=== PATIENT | male | born 1990 ===

== ENCOUNTER 2022-10-07 07:49 | Emergency (ER) | payer OTHER ==
[2022-10-07 07:58] VITALS: TEMP 98
[2022-10-07] MEDS ORDERED: KETOROLAC 15 MG/ML 1 ML VIAL IM STA (08:11)
--- NOTE | 2022-10-07 09:01 | ED ---
Back Pain HPI - General Chief Complaint: Back Pain/Injury Stated Complaint: back pain Time Seen by Provider: 10/07/22 08:05 Source: patient, RN notes reviewed Limitations: no limitations - History of Present Illness Initial Comments: Patient is a 32-year-old male presenting to the emergency room with complaints of right lower back pain radiating towards his hip. He reports the pain has been ongoing for approximately 3 days and began after sitting down a weight machine at the gym in which she was working his upper body with. He states that he went to urgent care where he was given a dose of steroid and muscle relaxer. He reports that these helped some initially but his pain persists and he was advised that within 24-48 hours symptoms should be improving. He denies any foc al neurological deficits, weakness, numbness, tingling, bowel or bladder incontinence, saddle paresthesia or other red flag symptoms for cauda equina. He has a past medical history significant for asthma without any recent exacerbations and does not take any medications on a regular basis. - Related Data Previous Rx's Medication Instructions Recorded predniSONE [Deltasone] 20 mg PO BID 5 Days #10 tab 10/07/22 Allergies Allergy/AdvReac Type Severity Reaction Status Date / Time No Known Allergies Allergy Verified 10/07/22 07:58 Review of Systems ROS Statement: Those systems with pertinent positive or pertinent negative responses have been documented in the HPI. ROS Other: All systems not noted in ROS Statement are negative. Past Medical History Past Medical History: Asthma Past Surgical History: No Surgical Hx Reported Past Psychological History: No Psychological Hx Reported Smoking Status: Current some day smoker Past Alcohol Use History: None Reported Past Drug Use History: None Reported General Exam Limitations: no limitations General appearance: alert Head exam: Present: atraumatic, normocephalic, normal inspection Eye exam: Present: normal appearance, PERRL, EOMI. Absent: scleral icterus, conjunctival injection, periorbital swelling ENT exam: Present: normal exam, mucous membranes moist Neck exam: Present: normal inspection, full ROM Respiratory exam: Absent: respiratory distress, accessory muscle use Cardiovascular Exam: Present: regular rate GI/Abdominal exam: Absent: distended Extremities exam: Present: normal inspection. Absent: pedal edema, joint swelling Back exam: Present: normal inspection, full ROM, tenderness (near right iliac crest). Absent: paraspinal tenderness, vertebral tenderness Neurological exam: Present: alert, oriented X3, CN II-XII intact Psychiatric exam: Present: normal affect, normal mood Skin exam: Present: warm, dry, intact, normal color. Absent: rash Course Vital Signs 10/07/22 10/07/22 07:56 10:11 Temperature 98 F 98 F Pulse Rate 89 85 Respiratory 20 18 Rate Blood Pressure 137/87 134/85 O2 Sat by Pulse 100 100 Oximetry Medical Decision Making - Medical Decision Making 32-year-old male presenting with complaints of low back pain radiating to the right flank region after utilizing gym equipment treated by urgent care with one-time dose of steroid a muscle relaxer with temporary relief of symptoms. Not currently on any prescriptions. No imaging obtained by urgent care. Will obtain x-ray of lumbar spine and sacroiliac joints. No indication for laboratory studies. Will give dose of IM Toradol for pain. Some mild improvement with Toradol. X-ray of the lumbar spine and sacroiliac joints image reviewed by myself showing no evidence of fracture or dislocation. Will discharge home in stable condition with conservative therapy and utilization of [id number] anti-inflammatories for pain as needed. Advise follow-up with primary care provider. Case discussed with Dr. Andujar. - Radiology Data Radiology results: report reviewed, image reviewed X-ray lumbosacral spine impression my radiology shows no acute fracture or dislocation seen in the lumbar spine vertebral height are within normal limits and disc spaces are well preserved. Overlying soft tissue appears unremarkable. Xray sacroiliac joints complete bilaterally impression my radiologist as negative study with normal and symmetrical sacroiliac joints. No fracture or osseous lesions. Disposition Clinical Impression: Low back pain with radiation Disposition: HOME SELF-CARE Condition: Stable Instructions (If sedation given, give patient instructions): Acute Low Back Pain (ED), Lower Back Exercises (ED) Additional Instructions: Please take course of steroids as prescribed. Do not take other NSAIDs while on steroids. Range of motion as tolerated encouraged. Avoid heavy lifting and bedrest. Please follow-up with your primary care provider. Please return to the Emergency Department if symptoms worsen or any other concerns.. Prescriptions: predniSONE [Deltasone] 20 mg PO BID 5 Days #10 tab Is patient prescribed a controlled substance at d/c from ED?: No Referrals: None,Stated [Primary Care Provider] - 1-2 days Time of Disposition: 09:38
--- NOTE | 2022-10-07 09:04 | XR ---
EXAMINATION TYPE: XR lumbosacral spine min 4V DATE OF EXAM: 10/07/2022 CLINICAL HISTORY: pain COMPARISON: NONE TECHNIQUE: Frontal, lateral, and oblique images of the lumbar spine are obtained. FINDINGS: There are 5 lumbar type vertebral bodies identified. The lumbar spine shows satisfactory alignment without evidence of acute fracture or dislocation. Vertebral body heights are within normal limits. Disc spaces are well preserved. The overlying soft tissue appears unremarkable. IMPRESSION: No acute fracture or dislocation is seen in the lumbar spine.ICD 10 NO FRACTURE, INITIAL EVALUATION
--- NOTE | 2022-10-07 09:07 | XR ---
EXAMINATION TYPE: XR sacroiliac joint comp BILAT DATE OF EXAM: 10/07/2022 COMPARISON: NONE HISTORY: pain TECHNIQUE: 4 views of the SI joints are submitted FINDINGS: Normal and symmetric SI joints. No abnormal widening or sclerosis. No fracture or osseous lesions. IMPRESSION: Negative study
[2022-10-07 10:12] VITALS: BP 134/85; PULSE 85; RESP 18
== END 2022-10-07 10:15 | disposition home or self-care (01) ==
LOC: EC 07:49
DX: M54.50 Low back pain, unspecified (principal); J45.909 Unspecified asthma, uncomplicated; F17.200 Nicotine dependence, unspecified, uncomplicated; M54.59 Other low back pain
CPT/HCPCS: 72110; 72202; 99283; 96372; J1885